=== PATIENT | male | born 1965 | race Caucasian/White ===

== ENCOUNTER 2017-12-29 15:22 | Emergency (ER) | payer SELFPAY ==
[~2017-12-29] VITALS: Ht 160 cm; Wt 87.0 kg
[2017-12-29 15:26] VITALS: BP 149/73
== END 2017-12-29 19:45 | disposition left against medical advice (07) ==
LOC: ER 15:49
DX: Z53.21 Procedure and treatment not carried out due to patient leaving prior to being seen by health care provider (principal)